=== PATIENT | female | born 1965 | race Caucasian/White ===

== ENCOUNTER 2017-11-17 16:09 | Emergency (ER) | payer SELFPAY ==
[~2017-11-17] VITALS: Ht 162.6 cm; Wt 82.0 kg
[2017-11-17 16:22] VITALS: BP 129/89; PULSE 80; RESP 24; TEMP 97.4; O2SAT 93
[2017-11-17] MEDS ORDERED: oxyCODONE/ACETAMINOPHEN 5 MG/325 MG TAB PO ONE (16:30)
[2017-11-17] MEDS ORDERED: KETOROLAC TROMETHAMINE 60 MG/2 ML (IM) VIAL IM ONE (16:30)
[2017-11-17] MEDS ORDERED: ADVA500A INH (16:31)
[2017-11-17] MEDS ORDERED: ASPI-516 CHEW (16:31)
[2017-11-17] MEDS ORDERED: OXYC30TA PO (16:31)
[2017-11-17] MEDS ORDERED: ALBU2TAB4 PO (16:31)
[2017-11-17] MEDS ORDERED: MORP1TAB26 PO (16:31)
[2017-11-17] MEDS ORDERED: LISI-515 PO (16:31)
[2017-11-17] MEDS ORDERED: CLON0.2T PO (16:31)
--- NOTE | 2017-11-17 16:31 | PD ---
HPI Chief Complaint: Back/ Neck Pain or Injury Time Seen by Provider: 16:24 Travel History International Travel<30 days: No Contact w/Intl Traveler<30days: No Traveled to known affect area: No History of Present Illness HPI 52-year-old female presents with her usual chronic back pain that is been present for multiple years. She states she is here visiting from the [facility] and cannot find any of her pain medications. For multiple years she states she has been on oxycodone 30 mg and morphine 60 mg. She states she called her primary doctor but they did not get back to her. She denies any new trauma or other concurrent complaints. She states that she recently completed an antibiotic course for pneumonia when she was in the hospital up at [facility]. She states that she had a little bit of shortness of breath and feels better after they gave her a breathing treatment. She states that she has breathing treatments available to her at home. Pain is worse with movement. She denies other modifying factors. Patient states she was on doxycycline before. PFSH Past Medical History Hypertension: Yes ?: Not Past Surgical History Cholecystectomy: Yes Gynecologic Surgery: Yes (hysterectomy) Social History Alcohol Use: No Tobacco Use: Yes (/ ppd) Substance Use: No Allergies-Medications (Allergen,Severity, Reaction): Coded Allergies: No Known Allergies (Verified Allergy, Unknown, 11/17/17) Reported Meds & Prescriptions Reported Meds & Active Scripts Active Azithromycin 250 Mg Tab 250 Mg PO DIRECTED Take 2 tabs (500 mg) on day 1 then 1 tab daily x 4 days. Flexeril (Cyclobenzaprine HCl) 10 Mg Tab 10 Mg PO HS PRN Reported Albuterol (Albuterol Sulfate) 2 Mg Tab Unknown Dose PO TID Advair Diskus Inh (Fluticasone-Salmeterol Inh) 500-50 Mcg/Blist Aer 1 Puff INH BID Rinse mouth after use. Morphine ER (Morphine Sulfate) 60 Mg Tab 60 Mg PO BID Oxycodone (Oxycodone HCl) 30 Mg Tab 30 Mg PO Q8H PRN Aspirin 81 Mg Chew 81 Mg CHEW DAILY Clonidine (Clonidine HCl) 0.2 Mg Tab 0.2 Mg PO HS Lisinopril 20 Mg Tab 20 Mg PO DAILY Review of Systems Except as stated in HPI: all other systems reviewed are Neg Physical Exam Narrative GENERAL: 52-year-old female in no apparent distress SKIN: Focused skin assessment warm/dry. HEAD: Atraumatic. Normocephalic. EYES: Pupils equal and round. No scleral icterus. No injection or drainage. ENT: No nasal bleeding or discharge. Mucous membranes pink and moist. NECK: Trachea midline. No JVD. CARDIOVASCULAR: Regular rate and rhythm. No murmur appreciated. RESPIRATORY: No accessory muscle use. Clear to auscultation. Breath sounds equal bilaterally. GASTROINTESTINAL: Abdomen soft, non-tender, nondistended. MUSCULOSKELETAL: No obvious deformities. No clubbing. No cyanosis. No edema. NEUROLOGICAL: Awake and alert. No obvious cranial nerve deficits. Motor grossly within normal limits. Normal speech. PSYCHIATRIC: Appropriate mood and affect; insight and judgment normal. Back: No midline pain across entire spine, no CVA tenderness, no step-off, mild tenderness to bilateral paraspinal lumbar area Data Data Last Documented VS Vital Signs Date Time Temp Pulse Resp B/P (MAP) Pulse Ox O2 Delivery O2 Flow Rate FiO2 11/17/17 18:21 80 15 127/68 (87) 96 Room Air 11/17/17 16:22 97.4 Orders Orders Chest, Pa & Lat (11/17/17 ) Ketorolac Inj (Toradol Inj) (11/17/17 16:30) Oxycodone-Acetamin 5-325 Mg (Percocet (11/17/17 16:30) Magnesium (Mg) (11/17/17 16:56) Phosphorus (Po4) (11/17/17 16:56) Complete Blood Count With Diff (11/17/17 16:56) Basic Metabolic Panel (Bmp) (11/17/17 16:56) B-Type Natriuretic Peptide (11/17/17 16:56) Iv Access Insert/Monitor (11/17/17 16:56) Ecg Monitoring (11/17/17 16:56) Oximetry (11/17/17 16:56) Lactic Acid (11/17/17 18:08) Ed Discharge Order (11/17/17 18:50) Labs Laboratory Tests Test 11/17/17 17:05 11/17/17 18:17 White Blood Count 14.2 TH/MM3 Red Blood Count 5.89 MIL/MM3 Hemoglobin 17.4 GM/DL Hematocrit 50.7 % Mean Corpuscular Volume 86.2 FL Mean Corpuscular Hemoglobin 29.6 PG Mean Corpuscular Hemoglobin Concent 34.3 % Red Cell Distribution Width 14.9 % Platelet Count 183 TH/MM3 Mean Platelet Volume 10.0 FL Neutrophils (%) (Auto) 85.1 % Lymphocytes (%) (Auto) 11.5 % Monocytes (%) (Auto) 2.5 % Eosinophils (%) (Auto) 0.5 % Basophils (%) (Auto) 0.4 % Neutrophils # (Auto) 12.1 TH/MM3 Lymphocytes # (Auto) 1.6 TH/MM3 Monocytes # (Auto) 0.4 TH/MM3 Eosinophils # (Auto) 0.1 TH/MM3 Basophils # (Auto) 0.1 TH/MM3 CBC Comment AUTO DIFF Differential Comment AUTO DIFF CONFIRMED Platelet Estimate NORMAL Platelet Morphology Comment NORMAL Blood Urea Nitrogen 13 MG/DL Creatinine 0.58 MG/DL Random Glucose 96 MG/DL Calcium Level 8.2 MG/DL Phosphorus Level 3.1 MG/DL Magnesium Level 2.0 MG/DL Sodium Level 144 MEQ/L Potassium Level 4.1 MEQ/L Chloride Level 110 MEQ/L Carbon Dioxide Level 18.3 MEQ/L Anion Gap 16 MEQ/L Estimat Glomerular Filtration Rate 109 ML/MIN B-Type Natriuretic Peptide 49 PG/ML Lactic Acid Level 1.0 mmol/L MDM Medical Decision Making Medical Screen Exam Complete: Yes Emergency Medical Condition: Yes Medical Record Reviewed: Yes (Past history confirmed) Interpretation(s) CBC & BMP Diagram 11/17/17 17:05 Calcium Level 8.2 L, Phosphorus Level 3.1, Magnesium Level 2.0 Last 24 hours Impressions Chest X-Ray 11/17/17 0000 Signed Impressions: CONCLUSION: Abnormal interstitial opacities in the lower lung zones bilaterally in a symmet isis distribution. In the chronic setting this could represent interstitial lung disease. In the acute setting this could represent pulmonary edema. Correlatin g with prior studies would be helpful to narrow the differential diagnosis. CT can also further characterize, if needed. Differential Diagnosis Medication refill, chronic back pain, pneumonia, COPD Narrative Course Patient will be given Toradol and a limited one-time dose of Percocet here. She will not be given a refill of her narcotics and this will need to be done through her primary. Will check chest x-ray to rule out recurrent pneumonia. Patient currently has no wheezing and stable vitals so is needing no further steroids or breathing treatments here Chest x-ray shows infiltrates. Will add on blood work Lab work within normal limits. Patient with stable vitals. Will discharge on outpatient antibiotics and have follow in the next 1-2 days with her primary. Patient denies any new complaints and states that they are feeling better. Patient happy with care, all questions answered. Patient knows that follow up is incumbent on them and to return to the emergency room immediately if new or worsening symptoms develop. Patient given strict return precautions, vitals reviewed and are normal, agrees to further workup as an outpatient. Diagnosis Primary Impression: Pneumonia Qualified Codes: J18.9 - Pneumonia, unspecified organism Additional Impression: Back pain Qualified Codes: M54.9 - Dorsalgia, unspecified Patient Instructions: General Instructions Additional Instructions: return as needed, follow with primary next 1-2 days, tylenol and flexeril as needed Med/Other Pt SpecificInfo: Prescription(s) given Scripts Azithromycin (Azithromycin) 250 Mg Tab 250 MG PO DIRECTED for Infection, #6 TAB 0 Refills Take 2 tabs (500 mg) on day 1 then 1 tab daily x 4 days. Prov: Kristina Graham MD 11/17/17 Cyclobenzaprine (Flexeril) 10 Mg Tab 10 MG PO HS Y for PAIN SCALE 1 TO 10, #15 TAB 0 Refills Prov: Kristina Graham MD 11/17/17 Disposition: 01 DISCHARGE HOME Condition: Stable Kristina Graham MD November 17, 2017 16:31
--- NOTE | 2017-11-17 16:51 | RADRPT ---
EXAM DATE: 11/17/2017 4:43 PM EDT AGE/SEX: 52 years / Female INDICATIONS: Short of breath. CLINICAL DATA: This is the patient's initial encounter. Patient reports that signs and symptoms have been present for 2 days and indicates a pain score of 0/10. MEDICAL/SURGICAL HISTORY: Chronic obstructive pulmonary disease. None. COMPARISON: No prior [place] exams available for comparison. FINDINGS: AP and lateral views of the chest demonstrate a normal-sized cardiac silhouette. There are interstiti al opacities in the lower lung zones bilaterally with asymmetric distribution. No pleural effusion, a irspace consolidation, or pneumothorax is identified. Bones demonstrate no acute finding. CONCLUSION: Abnormal interstitial opacities in the lower lung zones bilaterally in a symmetric distribution. In t he chronic setting this could represent interstitial lung disease. In the acute setting this could re present pulmonary edema. Correlating with prior studies would be helpful to narrow the differential d iagnosis. CT can also further characterize, if needed. Electronically signed by: Jordin Hardy MD 11/17/2017 4:50 PM EDT
[2017-11-17 17:10] VITALS: O2SAT 94
[2017-11-17 17:21] LABS: AUTOMATED NEUTROPHIL # 12.1 TH/MM3 (1.8-7.7); BASOPHIL # 0.1 TH/MM3 (0-0.2); BASOPHIL % 0.4 % (0.0-2.0); EOSINOPHIL # 0.1 TH/MM3 (0-0.4); EOSINOPHIL % 0.5 % (0.0-4.0); HEMATOCRIT 50.7 % (35.0-46.0); HEMOGLOBIN 17.4 GM/DL (11.6-15.3); LYMPH % 11.5 % (9.0-44.0); LYMPHOCYTE # 1.6 TH/MM3 (1.0-4.8); MEAN CELL VOLUME 86.2 FL (80.0-100.0); MEAN CORPUSCULAR HEMOGLOBIN 29.6 PG (27.0-34.0); MEAN CORPUSCULAR HGB CONC 34.3 % (32.0-36.0); MONO % 2.5 % (0.0-8.0); MONOCYTE # 0.4 TH/MM3 (0-0.9); NEUT % 85.1 % (16.0-70.0); PLATELET COUNT 183 TH/MM3 (150-450); RED BLOOD COUNT 5.89 MIL/MM3 (4.00-5.30); RED CELL DISTRIBUTION WIDTH 14.9 % (11.6-17.2); WHITE BLOOD COUNT 14.2 TH/MM3 (4.0-11.0)
[2017-11-17 17:33] LABS: BICARBONATE 18.3 MEQ/L (21.0-32.0); CALCIUM 8.2 MG/DL (8.5-10.1); CREATININE 0.58 MG/DL (0.50-1.00); PHOSPHORUS 3.1 MG/DL (2.5-4.9)
[2017-11-17 18:21] VITALS: BP 127/68; PULSE 80; RESP 15; O2SAT 96
[2017-11-17] MEDS ORDERED: CYCL10TA PO (18:57)
[2017-11-17] MEDS ORDERED: AZIT250T3 PO (18:57)
== END 2017-11-17 19:22 | disposition home or self-care (01) ==
LOC: NEPE 16:09
DX: J44.0 Chronic obstructive pulmonary disease with (acute) lower respiratory infection (principal); J18.9 Pneumonia, unspecified organism; M54.9 Dorsalgia, unspecified; I10 Essential (primary) hypertension; F17.200 Nicotine dependence, unspecified, uncomplicated; R06.02 Shortness of breath; Z79.899 Other long term (current) drug therapy
CPT/HCPCS: 71046; 80048; 83605; 83735; 83880; 84100; 85025; 96372; 99284; J1885

== ENCOUNTER 2017-11-17 19:40 | Emergency (ER) | payer SELFPAY ==
[~2017-11-17 19:40] MED LIST: ADVA500A INH; ALBU2TAB4 PO; ASPI-516 CHEW; AZIT250T3 PO; CLON0.2T PO; CYCL10TA PO; LISI-515 PO; MORP1TAB26 PO; OXYC30TA PO
[2017-11-17 20:08] VITALS: BP 166/79; PULSE 86; RESP 20; TEMP 98.6; O2SAT 95
== END 2017-11-17 20:30 | disposition left against medical advice (07) ==
LOC: NED 19:40
DX: R53.1 Weakness (principal)
CPT/HCPCS: 99281